=== PATIENT | male | born 1945 | race Caucasian/White ===

== ENCOUNTER 2022-11-08 09:38 | Outpatient (CLI) | payer OTHER ==
[2022-11-08 11:07] LABS: Hemoglobin 15.3 g/dL (13.5-17.5); Mean Corpuscular HGB CONC 33.8 g/dL (32.0-36.0); Mean Corpuscular Volume 97.4 fl (81.2-95.1); Mean Platelet Volume 10.7 fl (7.4-10.4); Platelet Count 222 10x3/uL (150-450); RBC Distribution Width 13.8 % (11.5-14.5); Red Blood Cell (RBC) Count 4.64 10x6/uL (4.32-5.72); White Blood Cell (WBC) Count 7.3 10x3/uL (3.5-10.5)
[2022-11-08 11:31] LABS: Anion Gap 15 mmol/L (10-20); BUN (Urea Nitrogen) 18 mg/dL (8.4-25.7); Calc. Creatinine Clearance 0 mL/min (70-130); Carbon Dioxide 23 mmol/L (23-31); Chloride 109 mmol/L (98-107); Estimated GFR 79; Glucose 102 mg/dL (83-110); Sodium 143 mmol/L (136-145)
== END 2022-11-08 09:39 | disposition home or self-care (01) ==
LOC: CSHLAB 09:38
PROVIDERS: ATTEND Otolaryngology Plastic Surgery within the Head & Neck
DX: Z01.818 Encounter for other preprocedural examination (principal)
CPT/HCPCS: 80048; 85027; 93005; 93010

== ENCOUNTER → 2022-11-11 | Day surgery (SDC) | payer OTHER ==
[2022-11-10 09:41] VITALS: BMI 34.7
== END ==
LOC: CSHSDC 07:06
PROVIDERS: ATTEND Otolaryngology Plastic Surgery within the Head & Neck
DX: H90.3 Sensorineural hearing loss, bilateral (principal); Z53.8 Procedure and treatment not carried out for other reasons; I10 Essential (primary) hypertension; I25.10 Atherosclerotic heart disease of native coronary artery without angina pectoris; Z79.01 Long term (current) use of anticoagulants; Z79.899 Other long term (current) drug therapy

== ENCOUNTER 2022-12-02 08:02 | Day surgery (SDC) | payer OTHER ==
[2022-11-30 14:34] VITALS: BMI 34.7
[2022-12-02] MEDS ORDERED: Lidocaine 1% PF 5 ML VIAL ONE (10:01)
[2022-12-02] MEDS ORDERED: Fentanyl 100 MCG/2 ML VIAL ONE (10:01)
[2022-12-02] MEDS ORDERED: Ondansetron PF 4 MG/2 ML Vial ONE (10:01)
[2022-12-02] MEDS ORDERED: Rocuronium Bromide 10 MG/ML (10ML VIAL) ONE (10:01)
[2022-12-02] MEDS ORDERED: Ketorolac Tromethamine 30 MG/ML VIAL ONE (10:01)
[2022-12-02] MEDS ORDERED: PROPOFOL 20 ML ONE (10:01)
[2022-12-02] MEDS ORDERED: Midazolam HCl 2 mg/2 ml Vial ONE (10:01)
[2022-12-02] MEDS ORDERED: Dexamethasone 20 MG/5 ML VIAL ONE (10:01)
[2022-12-02] MEDS ORDERED: Lidocaine 1% w/Epinephrine 1:100K 20 ML VIAL ONE (10:30)
[2022-12-02] MEDS ORDERED: Mupirocin 2% Ointment 22 GM Tube ONE (10:30)
[2022-12-02] MEDS ORDERED: ceFAZolin 2 GM/Dextrose 50 ML IVPB ONE (10:30)
[2022-12-02] MEDS ORDERED: EPINEPHrine 1 MG/ML AMP ONE (10:48)
== END 2022-12-02 14:15 | disposition home or self-care (01) ==
LOC: CSHSDC 08:02
PROVIDERS: ATTEND Otolaryngology Plastic Surgery within the Head & Neck
PROC: F0BZ09Z Cochlear Implant Rehabilitation Treatment using Cochlear Implant Equipment (ICD-10-PCS; principal; 2022-12-02)
DX: H90.3 Sensorineural hearing loss, bilateral (principal); I10 Essential (primary) hypertension; I25.10 Atherosclerotic heart disease of native coronary artery without angina pectoris; E78.00 Pure hypercholesterolemia, unspecified; Z79.01 Long term (current) use of anticoagulants; Z79.899 Other long term (current) drug therapy
CPT/HCPCS: 70250; J0171; J0690; J1100; J1885; J2250; J2370; J2405; J2704; J3010; L8614; Q9968

== ENCOUNTER 2023-12-01 08:05 | Day surgery (SDC) | payer OTHER ==
[2023-11-29 12:55] VITALS: BMI 34.0
[2023-12-01] MEDS ORDERED: EPINEPHrine 1 MG/ML VIAL ONE (10:33)
[2023-12-01] MEDS ORDERED: Mupirocin 2% Ointment 22 GM Tube ONE (10:34)
[2023-12-01] MEDS ORDERED: CEFAZOLIN 2 GM VIAL ONE (10:34)
[2023-12-01] MEDS ORDERED: PROPOFOL 20 ML ONE (10:41)
[2023-12-01] MEDS ORDERED: Dexmedetomidine 200 MCG/2 ML VIAL ONE (10:41)
[2023-12-01] MEDS ORDERED: fentaNYL 50 mcg/mL 1 mL Vial ONE ×3 (10:42→11:56)
[2023-12-01] MEDS ORDERED: Lidocaine 1% PF 5 ML VIAL ONE (10:43)
[2023-12-01] MEDS ORDERED: SUCCINYLCHOLINE/SOD CL,ISO/PF 200 MG/10 ML SYRINGE FS ONE (10:43)
[2023-12-01] MEDS ORDERED: Ondansetron PF 4 MG/2 ML Vial ONE (11:12)
[2023-12-01] MEDS ORDERED: Dexamethasone 4 mg/ml Vial ONE (11:12)
[2023-12-01] MEDS ORDERED: Dexamethasone 20 MG/5 ML VIAL ONE (11:19)
[2023-12-01] MEDS ORDERED: Lidocaine 1% w/Epinephrine 1:100K 20 ML VIAL ONE (11:40)
[2023-12-01] MEDS ORDERED: PHENYLEPHRINE-NS 100 MCG/ML 10 ML SYRINGE ONE (12:05)
[2023-12-01] MEDS ORDERED: ePHEDrine Sulfate 50 MG/10 ML VIAL ONE (12:06)
== END 2023-12-01 14:35 | disposition home or self-care (01) ==
LOC: CSHSDC 08:05
PROVIDERS: ATTEND Otolaryngology Plastic Surgery within the Head & Neck
PROC: F0BZ09Z Cochlear Implant Rehabilitation Treatment using Cochlear Implant Equipment (ICD-10-PCS; principal; 2023-12-01)
DX: H90.A21 Sensorineural hearing loss, unilateral, right ear, with restricted hearing on the contralateral side (principal); I25.10 Atherosclerotic heart disease of native coronary artery without angina pectoris; I10 Essential (primary) hypertension; I73.9 Peripheral vascular disease, unspecified; Z79.899 Other long term (current) drug therapy; Z87.891 Personal history of nicotine dependence; Z96.659 Presence of unspecified artificial knee joint
CPT/HCPCS: 70260; J0171; J1100; J2405; J2704; J3010; L8614